=== PATIENT | female | born 1955 | race Caucasian/White ===

== ENCOUNTER → 2017-02-05 | Day surgery (SDC) | payer OTHER ==
[~2017-02-05] MED LIST: CYMBALTA PO; HCTZ PO; METOPROLOL SUC100 MG PO; NAPROXEN500 M1 PO; PERCOCET5/325; PERCOCET5/325 PO; SYNTHROID175 MCG PO; VITAMIN B650 M2 PO
--- NOTE | ~2017-02-05 | OR ---
Unit #: [id number] #: [id number] Patient: GABY MICHEL [id number] [address] [address] [id number] MR#: [id number] NAME: GABY MICHEL ROOM: Date of Procedure: 02/05/2017 Admission Date: 02/05/2017 Surgeon: Murphy Millard M.D. : 1955 Attending Physician: Murphy Millard M.D. Primary Care Physician: Mayank Redman M.D. OPERATIVE REPORT PREOPERATIVE DIAGNOSES Colorectal cancer screening in a high-risk patient. The patient has family history of colon cancer in her mother. PROCEDURES PERFORMED 1. Colonoscopy and polypectomy. 2. Colonoscopy and argon plasma coagulation ablation. POSTOPERATIVE DIAGNOSES 1. The patient had a sessile polyp in the proximal ascending colon. This was removed using the technique of piecemeal polypectomy. The rest of polyp was then ablated using argon plasma coagulation therapy. 2. Localized severe sigmoid diverticulosis. 3. Rest of examination up to cecum was normal. The quality of the prep was good. RECOMMENDATIONS Follow up results of polyp histology and consider repeat examination in 5 years. SEDATION USED MAC. DESCRIPTION OF PROCEDURE Following detailed explanation of the potential risks and complications of a colonoscopy, namely perforation, bleeding, and complications related to sedation, the patient was brought to GI lab and laid in the left lateral decubitus position. A digital rectal examination was performed, which was normal. Lubricated tip of the Olympus video colonoscope was inserted through the anus and advanced under direct vision. The scope was advanced and passed up to sigmoid into descending colon. The patient has severe localized sigmoid diverticulosis and the area was quite difficult to navigate. Once the scope was advanced in descending colon, the proximal insertion was easier. The scope tip was then navigated all the way up to cecum with visualization of the ileocecal valve and the appendiceal orifice. Preparation was excellent with good visualization and photodocumentation was obtained. Successive segments of the colonic mucosa were examined upon withdrawal. A single sessile polyp was noted in the proximal ascending colon just above the ileocecal valve. This covered about 1/4th of circumferential fold. The polyp was clearly true sessile adenoma. It was removed using the technique of piecemeal polypectomy. The residual polyp tissue was then ablated using argon plasma coagulation Unit #: [id number] #: [id number] Patient: GABY MICHEL. No additional polyps were noted. Other than the localized severe sigmoid diverticulosis, no other abnormalities were found. The patient did not have any hemorrhoids at anal verge. The scope was then withdrawn. The patient returned to the recovery area. She tolerated the procedure without any postprocedure complications. Dictated by... Cesilia Lopez/kody TD: 02/05/2017 08:49 JOB #: [id number] OPERATIVE REPORT Page 1 of 1 X Murphy Millard MD X PROCEDURE OPERATIVE NOTE
== END | disposition home or self-care (01) ==
LOC: COPS 06:54
DX: Z12.11 Encounter for screening for malignant neoplasm of colon (principal); D12.2 Benign neoplasm of ascending colon; K57.30 Diverticulosis of large intestine without perforation or abscess without bleeding; Z80.0 Family history of malignant neoplasm of digestive organs; K21.9 Gastro-esophageal reflux disease without esophagitis; I10 Essential (primary) hypertension; E03.9 Hypothyroidism, unspecified; Z88.2 Allergy status to sulfonamides
CPT/HCPCS: 88305; J2250